=== PATIENT | female | born 1940 | race Caucasian/White ===

== ENCOUNTER → 2020-09-07 14:01 | Outpatient (BNVA) | payer MEDICARE, BC, SELFPAY | PROVIDERS: Family Provider Nurse Practitioner Family; PCP Student in an Organized Health Care Education/Training Program; Referring Provider Nurse Practitioner; Visit Provider Nurse Practitioner | DX: G31.84 Mild cognitive impairment of uncertain or unknown etiology (principal) | CPT/HCPCS: 80053; 82607; 84443; 86592; 96116; 99204 ==

== ENCOUNTER 2020-09-07 15:50 | Outpatient (CLI) | payer MEDICARE, BC, SELFPAY ==
[2020-09-07 17:12] LABS: Alanine Aminotransferase 9 U/L (0-33); Albumin Level 4.1 g/dL (3.5-5.2); Alkaline Phosphatase 87 IU/L (35-105); Anion Gap 15.8 (5-19); Aspartate Amino Transferase 14 U/L (0-32); Blood Urea Nitrogen 21 mg/dL (8-23); Calcium 8.9 mg/dL (8.5-10.5); Carbon Dioxide 23 mmol/L (22-29); Chloride 104 mmol/L (98-107); Globulin 2.7 g/dL (1.3-4.6); Glucose 109 mg/dL (65-115); Osmolality Calculated 292 mOsm/kg (285-295); Potassium 3.8 mmol/L (3.5-5.1); Sodium 139 mmol/L (136-145); Thyroid Stimulating Hormone 1.97 uIU/mL (0.27-4.20); Total Bilirubin 0.5 mg/dL (0.15-1.2); Total Protein 6.8 g/dL (6.6-8.7)
[2020-09-07 17:14] LABS: Rapid Plasma Reagin Syphilis Nonreactive (Nonreactive)
[2020-09-07 18:14] LABS: Vitamin B12 387 pg/mL (232-1245)
== END 2020-09-07 15:51 | disposition home or self-care (01) ==
LOC: LAB 15:58
PROVIDERS: Family Provider Nurse Practitioner Family; PCP Student in an Organized Health Care Education/Training Program; Visit Provider Nurse Practitioner
DX: G31.84 Mild cognitive impairment of uncertain or unknown etiology (principal)
CPT/HCPCS: 80053; 82607; 84443; 86592

== ENCOUNTER 2020-09-30 15:03 | Outpatient (CLI) | payer MEDICARE, BC, SELFPAY ==
--- NOTE | 2020-09-30 15:15 | MR_ITS ---
WS: [id number] MRI HEAD WITHOUT CONTRAST TECHNIQUE: Sagittal T1, T2 axial, T2 axial FLAIR, axial and coronal T1 images, axial susceptibility w eighted imaging, axial diffusion weighted images, and coronal T2 images were obtained. CLINICAL INFORMATION: G31.84 - Mild cognitive impairment, so stated COMPARISON: None. FINDINGS: No evidence of restricted diffusion to suggest acute ischemia. Ventricular system and basal cisterns are patent. Moderate small vessel changes. Moderate parenchymal volume loss. Advanced symmetric atrop hy temporal lobes and hippocampal formations. Supratentorial volume loss worse in the parietal lobes. Normal posterior fossa. Normal vascular flow voids at the skull base. No extra-axial fluid collection s. No evidence of mass or mass effect. Paranasal sinuses are well aerated. Mastoid air cells are well aerated. No hemosiderin on susceptibly weighted images. Normal optic chiasm and pituitary infundibulum. Normal cavernous sinuses and Meckel's cave. MR/MR head wo con* [id number] IMPRESSION: 1. No evidence of restricted diffusion to suggest acute ischemia. 2. Moderate small vessel changes with moderate parenchymal volume loss worse i n the parietal lobes. 3. Moderate to advanced symmetric atrophy temporal lobes and hippocampal forma tions. 4. Paranasal sinuses and mastoid air cells are well aerated. 5. No hemosiderin on susceptibly weighted images.
== END 2020-09-30 15:04 | disposition home or self-care (01) ==
LOC: RADSHAW 15:04
PROVIDERS: PCP Student in an Organized Health Care Education/Training Program; Visit Provider Nurse Practitioner
DX: G31.84 Mild cognitive impairment of uncertain or unknown etiology (principal)
CPT/HCPCS: 70551